=== PATIENT | male | born 1930 | race American Indian/Alaskan Native ===

== ENCOUNTER 2017-05-29 20:42 | Inpatient (IN) | payer MEDICARE, BC, OTHER ==
[2017-05-29 20:42] VITALS: BMI 20.7
[2017-05-29] MEDS ORDERED: Sodium Chloride 0.9% 1,000 ML IV STA (21:02)
[2017-05-29 21:32] LABS: BASO # 0.06 K/mm3 (0.0-2.0); BASO % 1.9 % (0.0-3.0); EOS # 0.2 (0.0-0.7); EOS % 6.3 % (1.5-5.0); GRAN # 1.8 (1.4-6.5); GRAN % 57.2 % (50.0-68.0); HEMOGLOBIN 12.8 g/dL (14.0-18.0); LYMPH # 0.7 (1.2-3.4); LYMPH % 23.5 % (22.0-35.0); MEAN CELL VOLUME 92.8 fl (80.0-105.0); MEAN CORPUSCULAR HEMOGLOBIN 30.8 pg (25.0-35.0); MEAN CORPUSCULAR HGB CONC 33.2 g/dl (31.0-37.0); MEAN PLATELET VOLUME 11.4 fl (7.0-11.0); MONO # 0.4 (0.1-0.6); MONO % 11.1 % (1.0-6.0); RBC 4.15 10^6/uL (3.5-6.1); RED CELL DISTRIBUTION WIDTH 14.8 % (11.5-14.5); WHITE BLOOD COUNT 3.2 10^3/ul (4.5-11.0)
--- NOTE | 2017-05-29 21:32 | ED PDOC ---
Arrival/HPI - General Chief Complaint: Palpitations Time Seen by Provider: 05/29/17 20:43 - History of Present Illness Narrative History of Present Illness (Text): 05/29/17 21:26 An 86 year old male, whose past medical history includes hypertension and prostate cancer, presents to the emergency department for further evaluation s/ p an abnormal EKG obtained at his PMD's office this evening. The patient states that he was recently diagnosed with prostate cancer and was advised to follow up with his PMD to get clearance to begin chemotherapy. The patient states that he went to his scheduled PMD appointment tonight and an EKG was obtained at a rate of 136 BPM. The PMD advised the patient to come into the emergency department for his abnormal EKG results. The patient drove himself to the emergency department and is currently asymptomatic; denying fevers, chills, headache, dizziness, chest pain, shortness of breath, dyspnea on exertion, cough , abdominal pain, nausea, vomiting, diarrhea, back pain, neck pain, urinary/ bowel changes, or any other complaint. PMD: Dr. Doug Martinez Time/Duration: Prior to Arrival Symptom Onset: Sudden Symptom Course: Unchanged Activities at Onset: Rest, Light Context: Other (PMD's office) Past Medical History - Provider Review Nursing Documentation Reviewed: Yes - Infectious Disease Hx of Infectious Diseases: None - Cardiac Hx Cardiac Disorders: Yes Hx Hypertension: Yes - Pulmonary Hx Respiratory Disorders: No - Neurological Hx Neurological Disorder: No - HEENT Hx HEENT Disorder: Yes (glasses) - Renal Hx Renal Disorder: No - Endocrine/Metabolic Hx Endocrine Disorders: No - Hematological/Oncological Hx Blood Disorders: Yes Hx Cancer: Yes (prostate) - Integumentary Hx Dermatological Disorder: No - Musculoskeletal/Rheumatological Hx Musculoskeletal Disorders: Yes Hx Arthritis: Yes - Gastrointestinal Hx Gastrointestinal Disorders: No - Genitourinary/Gynecological Hx Genitourinary Disorders: Yes Hx Prostate Cancer: Yes - Psychiatric Hx Psychophysiologic Disorder: No Hx Substance Use: No - Surgical History Other/Comment: prostate. green light surgery - Anesthesia Hx Anesthesia: Yes Hx Anesthesia Reactions: No Hx Malignant Hyperthermia: No Family/Social History - Physician Review Nursing Documentation Reviewed: Yes Family/Social History: No Known Family HX Smoking Status: Never Smoked Hx Alcohol Use: No Hx Substance Use: No Allergies/Home Meds Allergies/Adverse Reactions: Allergies No Known Allergies Allergy (Verified 06/15/16 18:14) Home Medications: Home Meds Medication Instructions Recorded Confirmed Aspirin [Adult Low Dose Aspirin EC] 81 mg PO DAILY 06/15/16 05/29/17 Hyoscyamine [Levsin] 0.125 mg PO DAILY 06/15/16 05/29/17 Metoprolol Succinate [Toprol XL] 50 mg PO DAILY 06/15/16 05/29/17 Rosuvastatin Calcium [Crestor] 20 mg PO DAILY 05/29/17 05/29/17 Review of Systems - Physician Review All systems were reviewed & negative as marked: Yes - Review of Systems Constitutional: absent: Fevers, Night Sweats Respiratory: absent: SOB, Cough Cardiovascular: absent: Chest Pain, [place] Gastrointestinal: absent: Abdominal Pain, Stool Changes, Diarrhea, Nausea, Vomiting Genitourinary Male: absent: Urinary Output Changes Musculoskeletal: absent: Back Pain, Neck Pain Neurological: absent: Headache, Dizziness Physical Exam Vital Signs Reviewed: Yes Vital Signs Temp Pulse Resp BP Pulse Ox 05/29/17 22:42 97.5 F L 98 H 16 139/93 H 98 05/29/17 20:59 97.4 F L 137 H 24 130/90 99 Temperature: Hypothermic Blood Pressure: Normal Pulse: Tachycardic Respiratory Rate: Normal Appearance: Positive for: Well-Appearing, Non-Toxic, Comfortable Pain Distress: None Mental Status: Positive for: Alert and Oriented X 3 - Systems Exam Head: Present: Atraumatic, Normocephalic Pupils: Present: PERRL Extroacular Muscles: Present: EOMI Conjunctiva: Present: Normal Mouth: Present: Moist Mucous Membranes Neck: Present: Normal Range of Motion Respiratory/Chest: Present: Clear to Auscultation, Good Air Exchange. No: Respiratory Distress, Accessory Muscle Use Cardiovascular: Present: Regular Rate and Rhythm, Normal S1, S2. No: Murmurs Abdomen: Present: Normal Bowel Sounds. No: Tenderness, Distention, Peritoneal Signs Back: Present: Normal Inspection Upper Extremity: Present: Normal Inspection. No: Cyanosis, Edema Lower Extremity: Present: Normal Inspection. No: Edema Neurological: Present: GCS=15, CN II-XII Intact, Speech Normal Skin: Present: Warm, Dry, Normal Color. No: Rashes Psychiatric: Present: Alert, Oriented x 3, Normal Insight, Normal Concentration Medical Decision Making ED Course and Treatment: 05/29/17 21:33 Impression: An 86 year old male presents to the emergency department for further evaluation s/p an abnormal EKG at his PMD's office this evening. Plan: -- EKG -- Chest X-Ray -- Labs -- IV Fluids -- Reassess and disposition Progress Notes: EK05/29/17 21:33 Ordered, reviewed, and independently interpreted the EKG. Rate : 138 BPM Rhythm : Sinus Tachycardia Interpretation : Non- specific ST- T changes. EK05/29/17 22:47 Ordered, reviewed, and independently interpreted the EKG. Rate : 104 BPM Rhythm : Sinus Tachycardia, rate is controlled. Interpretation : Atrial flutter with variable AV block. Septal infarct, age undetermined. - Lab Interpretations Lab Results: 05/29/17 21:00 05/29/17 21:00 Lab Results 05/29/17 21:00: Sodium 141, Potassium 3.7, Chloride 101, Carbon Dioxide 27, Anion Gap 17, BUN 16, Creatinine 1.1, Est GFR ( Amer) > 60, Est GFR (Non- Af Amer) > 60, Random Glucose 85, Calcium 9.5, Total Bilirubin 0.7, AST 47, ALT 67 H, Alkaline Phosphatase 88, Lactate Dehydrogenase 517, Total Creatine Kinase 131, Troponin I 0.02, Total Protein 7.0, Albumin 3.9, Globulin 3.2, Albumin/ Globulin Ratio 1.2 05/29/17 21:00: PT 13.1 H, INR 1.15 H 05/29/17 21:00: WBC 3.2 L, RBC 4.15, Hgb 12.8 L, Hct 38.5 L, MCV 92.8, MCH 30.8 , MCHC 33.2, RDW 14.8 H, Plt Count 142, MPV 11.4 H, Gran % 57.2, Lymph % (Auto) 23.5, [place] % (Auto) 11.1 H, Eos % (Auto) 6.3 H, Baso % (Auto) 1.9, Gran # 1.80, Lymph # (Auto) 0.7 L, [place] # (Auto) 0.4, Eos # (Auto) 0.2, Baso # (Auto) 0.06 I have reviewed the lab results: Yes - RAD Interpretation Radiology Orders: 05/29/17 21:02 CHEST PORTABLE [RAD] Stat - EKG Interpretation Interpreted by ED Physician: Yes Type: 12 lead EKG - Medication Orders Current Medication Orders: Discontinued Medications Sodium Chloride (Sodium Chloride 0.9%) 1,000 mls @ 999 mls/hr IV .Q1H1M STA Stop: 05/29/17 22:02 Last Admin: 05/29/17 21:31 Dose: 999 mls/hr eMAR Start Stop Document 05/29/17 21:31 AB (Rec: 05/29/17 21:31 AB [facility] [id number]) Intravenous Solution Start Date 05/29/17 Start Time 21:31 End Date 05/29/17 End time 22:31 Total Infusion Time 60 - PA / JAVA USER INTERFACE DEVELOPER / Resident Statement MD/DO has reviewed & agrees with the documentation as recorded. - Scribe Statement The provider has reviewed the documentation as recorded by the Scribe Suzanne Freire Provider Scribe Attestation: All medical record entries made by the Scribe were at my direction and personally dictated by me. I have reviewed the chart and agree that the record accurately reflects my personal performance of the history, physical exam, medical decision making, and the department course for this patient. I have also personally directed, reviewed, and agree with the discharge instructions and disposition. Disposition/Present on Arrival - Present on Arrival Any Indicators Present on Arrival: No History of DVT/PE: No History of Uncontrolled Diabetes: No Urinary Catheter: No History of Decub. Ulcer: No History Surgical Site Infection Following: None - Disposition Have Diagnosis and Disposition been Completed?: Yes Diagnosis: Atrial fibrillation and flutter Disposition: HOSPITALIZED Disposition Time: 23:56 (New Onset A Fib/ Variable Ventricular Response) Patient Plan: Admission Condition: GOOD Referrals: Doug Martinez MD [Primary Care Provider] - Follow up with primary Forms: [employer] (E[place]ian)
[2017-05-29 21:42] LABS: ALB/GLOB RATIO 1.2 (1.1-1.8); ALBUMIN 3.9 g/dL (3.0-4.8); ALT/SGPT 67 U/L (7-56); AST/SGOT 47 U/L (17-59); BLOOD UREA NITROGEN 16 mg/dL (7-21); CALCIUM 9.5 mg/dL (8.4-10.5); GFR AFRICAN-AMERICAN > 60; GFR NON-AFRICAN AMERICAN > 60; INR 1.15 (0.93-1.08); PROTHROMBIN TIME 13.1 SECONDS (9.4-12.5)
[2017-05-29 21:52] LABS: TROPONIN I 0.02 ng/mL
[2017-05-30] MEDS ORDERED: Enoxaparin 80 mg Syringe SC STA (00:32)
[2017-05-30] MEDS ORDERED: Potassium Chloride 20 mEq ER Tab PO ONE (09:00)
[2017-05-30] MEDS: Metoprolol Succinate 50 mg XL Tab PO SCH (09:58)
[2017-05-30] MEDS ORDERED: Metoprolol Succinate 50 mg XL Tab PO SCH (10:00)
[2017-05-30 10:03] LABS: HDL CHOLESTEROL 47 mg/dL (29-60)
[2017-05-30 10:14] LABS: LDL CHOLESTEROL 39 mg/dL (0-129)
[2017-05-30] MEDS ORDERED: [UNRECOGNIZED DRUG - OTHER] PO SCH (10:15)
[2017-05-30] MEDS ORDERED: VALSARTAN PO SCH (10:15)
[2017-05-30] MEDS ORDERED: HYDROCHLOROTHIAZIDE PO SCH (10:15)
--- NOTE | 2017-05-30 11:22 | RAD ---
HISTORY: Tachycardia COMPARISON: No prior. FINDINGS: LUNGS: No active pulmonary disease. PLEURA: No significant pleural effusion identified, no pneumothorax apparent. CARDIOVASCULAR: Normal. OSSEOUS STRUCTURES: No significant abnormalities. VISUALIZED UPPER ABDOMEN: Normal. OTHER FINDINGS: None. IMPRESSION: No active disease.
--- NOTE | 2017-05-30 11:45 | CP.PCM.HP ---
<Nataliia Tamez - Last Filed: 05/30/17 11:41> History of Present Illness - History of Present Illness History of Present Illness: Chief complaint: abn ECG 86 yr male w/ history HTN, prostate CA (undergoing radiation treatment), CVA (in 2008), CAD w. stents, ataxia, & arthritis. Pt was in PMD office, Dr. Doug Martinez, when he was instructed to go to hospital for abnormal ECG noted in pre-op clearance for Prostate seed implantation. He reports feeling lethargic for "the past couple days." Pt denies any fever, chills, nausea, vomiting, abdominal pain, shortness of breath, weakness, numbness, tingling, diarrhea, constipation or urinary changes. Present on Admission - Present on Admission Any Indicators Present on Admission: No History of DVT/PE: No History of Uncontrolled Diabetes: No Urinary Catheter: No Decubitus Ulcer Present: No Review of Systems - Constitutional Constitutional: As Per HPI - EENT Eyes: As Per HPI Ears: As Per HPI Nose/Mouth/Throat: As Per HPI - Cardiovascular Cardiovascular: As Per HPI - Respiratory Respiratory: As Per HPI - Gastrointestinal Gastrointestinal: As Per HPI - Genitourinary Genitourinary: As Per HPI - Reproductive: Male Reproductive:Male: As Per HPI - Musculoskeletal Musculoskeletal: As Per HPI - Integumentary Integumentary: As Per HPI - Neurological Neurological: As Per HPI - Psychiatric Psychiatric: As Per HPI - Endocrine Endocrine: As Per HPI - Hematologic/Lymphatic Hematologic: As Per HPI Past Patient History - Infectious Disease Hx of Infectious Diseases: None - Past Medical History & Family History Past Family History: Reviewed and not pertinent - Past Social History Smoking Status: Unknown If Ever Smoked - CARDIAC Hx Cardiac Disorders: Yes Hx Hypercholesterolemia: Yes Hx Hypertension: Yes - PULMONARY Hx Respiratory Disorders: No - NEUROLOGICAL Hx Neurological Disorder: No - HEENT Hx HEENT Problems: Yes (wears glasses) - RENAL Hx Chronic Kidney Disease: No - ENDOCRINE/METABOLIC Hx Endocrine Disorders: No - HEMATOLOGICAL/ONCOLOGICAL Hx Blood Disorders: Yes Hx Cancer: Yes (prostate) - INTEGUMENTARY Hx Dermatological Problems: No - MUSCULOSKELETAL/RHEUMATOLOGICAL Hx Musculoskeletal Disorders: Yes Hx Arthritis: Yes Hx Falls: No - GASTROINTESTINAL Hx Gastrointestinal Disorders: No - GENITOURINARY/GYNECOLOGICAL Hx Genitourinary Disorders: Yes Hx Prostate Problems: Yes (HX of prostate CA) - PSYCHIATRIC Hx Psychophysiologic Disorder: No - SURGICAL HISTORY Hx Surgeries: Yes Other/Comment: prostate. green light surgery - ANESTHESIA Hx Anesthesia: Yes Hx Anesthesia Reactions: No Hx Malignant Hyperthermia: No Meds Allergies/Adverse Reactions: Allergies Allergy/AdvReac Type Severity Reaction Status Date / Time No Known Allergies Allergy Verified 06/15/16 18:14 Physical Exam - Constitutional Appears: Well - Head Exam Head Exam: ATRAUMATIC, NORMAL INSPECTION, NORMOCEPHALIC - Eye Exam Eye Exam: EOMI, Normal appearance, PERRL Pupil Exam: NORMAL ACCOMODATION, PERRL - ENT Exam ENT Exam: Mucous Membranes Moist, Normal Exam - Neck Exam Neck exam: Positive for: Normal Inspection - Respiratory Exam Respiratory Exam: Clear to Auscultation Bilateral, NORMAL BREATHING PATTERN - Cardiovascular Exam Cardiovascular Exam: Tachycardia, +S1, +S2 - GI/Abdominal Exam GI & Abdominal Exam: Normal Bowel Sounds, Soft. absent: Tenderness - Extremities Exam Extremities exam: Positive for: normal inspection Additional comments: cane at bedside. - Back Exam Back exam: NORMAL INSPECTION - Neurological Exam Neurological exam: Alert, Oriented x3, Reflexes Normal - Psychiatric Exam Psychiatric exam: Normal Affect, Normal Mood - Skin Skin Exam: Dry, Intact, Normal Color, Warm Results - Vital Signs Recent Vital Signs: Last Vital Signs Temp 99 F 05/30/17 06:00 Pulse 137 H 05/30/17 09:58 Resp 20 05/30/17 06:00 BP 151/99 H 05/30/17 09:58 Pulse Ox 99 05/30/17 06:00 - Labs Result Diagrams: 05/29/17 21:00 05/29/17 21:00 Labs: Laboratory Results - last 24 hr 05/30/17 05/30/17 09:30 09:30 Triglycerides 41 Cholesterol 98 L LDL Cholesterol Direct 39 HDL Cholesterol 47 TSH 3rd Generation 1.64 Assessment & Plan (1) Anemia Status: Acute (2) Neutropenia Status: Acute (3) Prostate CA Status: Acute (4) Abnormal LFTs Status: Acute (5) Atrial fibrillation and flutter Status: Acute - Assessment and Plan (Free Text) Plan: Admit to Telemetry. ECHO ordered. Electrolytes corrected. Labs ordered. GI/VTE prophylaxis. Consult: Cardio - Dr. Benítez Reviewed: CXR = WNL ECG = ABNORMAL, aflutter w. variable AV block septal infarct, age undetermined - Date & Time Date: 05/30/17 Time: 09:45 <Rocio De Santiago - Last Filed: 05/30/17 23:16> Results - Vital Signs Recent Vital Signs: Last Vital Signs Temp 97.4 F L 05/30/17 21:49 Pulse 55 L 05/30/17 21:49 Resp 18 05/30/17 21:49 BP 112/79 05/30/17 21:49 Pulse Ox 96 05/30/17 21:49 - Labs Result Diagrams: 05/29/17 21:00 05/29/17 21:00 Labs: Laboratory Results - last 24 hr 05/30/17 05/30/17 05/30/17 09:30 09:30 09:30 Hemoglobin A1c 5.7 Triglycerides 41 Cholesterol 98 L LDL Cholesterol Direct 39 HDL Cholesterol 47 TSH 3rd Generation 1.64 Assessment & Plan - Assessment and Plan (Free Text) Plan: 86 yr male w/ history HTN, prostate CA (undergoing radiation treatment), CVA (in 2008), CAD w. stents, ataxia, & arthritis. Pt was in PMD office, Dr. Doug Martinez, when he was instructed to go to hospital for abnormal ECG noted in pre-op clearance for Prostate seed implantation. He reports feeling lethargic for "the past couple days." Pt denies any fever, chills, nausea, vomiting, abdominal pain, shortness of breath, weakness, numbness, tingling, diarrhea, constipation or urinary changes.pt is seen and examined at bed side , looking comfortable . agreed all above , will f/u
[2017-05-30] MEDS: Hyoscyamine 0.125 mg SL Tab PO SCH ×2 (12:51→13:01)
--- NOTE | 2017-05-30 16:13 | CARD ---
APPROVED REPORT EKG Measurement Heart [id number] <Conclusion> Atrial flutter with variable AV block Septal infarct, age undetermined Abnormal ECG
--- NOTE | 2017-05-30 16:15 | CARD ---
APPROVED REPORT EKG Measurement Heart [id number] 142P [id number] <Conclusion> Sinus tachycardia Septal infarct, age undetermined ST & T wave abnormality, consider anterior ischemia Abnormal ECG
--- NOTE | 2017-05-30 18:33 | CARD ---
APPROVED REPORT EXAM: Two-dimensional and M-mode echocardiogram with Doppler and color Doppler. INDICATION Atrial Fibrillation 2D DIMENSIONS Left Atrium (2D)5.4 (1.6-4.0cm)IVSd1.3 (0.7-1.1cm) LVDd4.4 (3.9-5.9cm)PWd1.2 (0.7-1.1cm) LVDs3.9 (2.5-4.0cm)FS (%) 11.6 % LVEF (%)25.3 (>50%) M-Mode DIMENSIONS Aortic Root2.70 (2.2-3.7cm)Aortic Cusp Exc.1.40 (1.5-2.0cm) Aortic Valve AoV Peak Scgackoq591.0cm/Renato Peak GR.7mmHg Mitral Valve E/A ratio0.0 TDI E/Lateral E'0.0E/Medial E'0.0 Tricuspid Valve TR Peak [id number] [id number] Peak Gr.36mmHg [id number] LEFT VENTRICLE The Left Ventricle is borderline dilated. There is mild to moderate concentric left ventricular hypertrophy. The systolic function is severely impaired.EF-20-25% There is global moderate to severe hypokinesis of the left ventricle. A fib No left ventricle thrombus noted on this study. There is no ventricular septal defect visualized. There is no left ventricular aneurysm. There is no mass noted in the left ventricle. RIGHT VENTRICLE The right ventricle is borderline dilated. There is normal right ventricular wall thickness. Systolic function is mildly reduced. ATRIA The left atrium is severely dilated. The right atrium is mildly dilated. The interatrial septum is intact with no evidence for an atrial septal defect. AORTIC VALVE The aortic valve is thickened but opens well. The aortic valve is moderately sclerotic. There is trace aortic regurgitation. There is no aortic valvular stenosis. There is no aortic valvular vegetation. MITRAL VALVE The mitral valve is thickened but opens well. Mitral regurgitation is moderate. There is no mitral valve stenosis. There is no evidence of mitral valve prolapse. TRICUSPID VALVE The tricuspid valve leaflets are thickened , but open well. There is moderate tricuspid regurgitation.RVSP-46 mmof hg. There is no tricuspid valve stenosis. There is no tricuspid valve prolapse or vegetation. PULMONIC VALVE The pulmonic valve is mildly thickened. There is trace pulmonic valvular regurgitation. There is no pulmonic valvular stenosis. GREAT VESSELS The aortic root is normal in size. The ascending aorta is normal in size. The pulmonary artery is normal. The IVC is dilated. PERICARDIAL EFFUSION There is no pleural effusion. There is no pericardial effusion. <Conclusion> Four chamber dilatation ,EF-20-25% There is trace aortic regurgitation. Mitral regurgitation is moderate. There is moderate tricuspid regurgitation.RVSP-46 mmof hg. The IVC is dilated. There is no pericardial effusion. Pt was in A fib at the time of study.
--- NOTE | 2017-05-30 19:25 | CON ---
DATE: REASON FOR CONSULTATION: Followup AFib new onset, preop for prostate seeding, history of coronary artery disease. BRIEF CLINICAL HISTORY: This is an 86-year-old male with past medical history significant for hypertension, prostate CA, history of coronary artery disease, history of a stent in circumflex OM1 by Dr. Mami Corona on 11/10/2006 at [facility], who was having prostate seed implantation for prostate CA, now getting radiation. Preop, patient underwent EKG and was found to be in AFib, so sent to the ER. Patient denies any chest pain or shortness of breath. Denied any palpitation. Patient walks with a cane. PAST MEDICAL HISTORY: Significant for hypertension, hyperlipidemia; prostate CA, on radiation, 2 more radiation left, and patient needs radioactive seed implantation with prostate surgery. Preop evaluation EKG showed AFib, so the patient was sent to the ER. PREVIOUS CARDIAC WORKUP: Patient follows with Dr. Mami Corona, history of a stent on 11/10/2006 of the obtuse margin one branch of the circumflex at [facility], being followed by Dr. Bolaños, last time Dr. Bolaños saw is 7 months ago, and had stress test one year ago. CURRENT MEDICATIONS: Patient is taking Crestor 20 mg daily, Levsin 0.125 mg , aspirin 81 mg daily, metoprolol succinate 50 mg daily. REVIEW OF SYSTEMS: As per HPI. PHYSICAL EXAMINATION: As follows: VITAL SIGNS: Temperature afebrile, heart rate 116, blood pressure 119/55. HEENT: PERRLA. Extraocular muscles intact. NECK: Supple. No carotid bruits or thyromegaly. CHEST: Clear to auscultation. HEART: S1 and S2, irregular. ABDOMEN: Soft. EXTREMITIES: Clubbing and cyanosis negative. LABORATORY DATA: EKG showed AFib with rapid rate, though computer read it as sinus tachycardia with aflutter with 2:1 conduction. Blood workup as follows, WBC 3.8, hemoglobin 12.8, hematocrit 38.5, platelet count 142. Chemistry showed sodium 141, potassium 3.7, chloride 101, carbon dioxide 27, anion gap of 17, BUN 16, creatinine 1.1. IMPRESSION: New onset of atrial fibrillation with flutter; prostate cancer, for seed implantation next week, history of prostate cancer, on radiation; history of coronary artery disease, status post percutaneous transluminal coronary angioplasty of the circumflex on 11/10/2006, history of cerebrovascular accident with left-sided weakness in lower extremity, walks with a cane. RECOMMENDATIONS: We will start low-dose of Eliquis. Start Cardizem. We will get echo to assess LV function, lipid profile, TSH, and upon discharge, patient to be followed up with Dr. Mami Corona for possible SADE cardioversion and then hold the procedure. I explained the patient to hold the procedure of seed implantation till the patient become normal sinus, or leave him for at least a week or 2 weeks of blood thinner, then reschedule for prostate seed implantation surgery. Thank you Dr. De Santiago for providing the opportunity in taking care of the patient Balbir Hyde. Lisa Benítez MD cc: Rocio De Santiago MD
[2017-05-31 08:31] LABS: BASO # 0.03 K/mm3 (0.0-2.0); BASO % 0.9 % (0.0-3.0); EOS # 0.2 (0.0-0.7); EOS % 5.8 % (1.5-5.0); GRAN # 1.84 (1.4-6.5); GRAN % 52.9 % (50.0-68.0); HEMOGLOBIN 13.2 g/dL (14.0-18.0); MEAN CELL VOLUME 92.4 fl (80.0-105.0); MEAN CORPUSCULAR HEMOGLOBIN 30.6 pg (25.0-35.0); MEAN CORPUSCULAR HGB CONC 33.1 g/dl (31.0-37.0); MONO # 0.4 (0.1-0.6); MONO % 12.4 % (1.0-6.0); RBC 4.32 10^6/uL (3.5-6.1); RED CELL DISTRIBUTION WIDTH 14.7 % (11.5-14.5); WHITE BLOOD COUNT 3.5 10^3/ul (4.5-11.0)
[2017-05-31 09:04] LABS: ALB/GLOB RATIO 1.2 (1.1-1.8); ALT/SGPT 77 U/L (7-56); AST/SGOT 48 U/L (17-59); BLOOD UREA NITROGEN 19 mg/dL (7-21); CALCIUM 9.6 mg/dL (8.4-10.5); GFR AFRICAN-AMERICAN > 60; GFR NON-AFRICAN AMERICAN > 60; MAGNESIUM 2.1 mg/dL (1.7-2.2)
[2017-05-31] MEDS: Metoprolol Succinate 50 mg XL Tab PO SCH (09:38)
[2017-05-31] MEDS: Lubricant Eye Drops UD OU SCH (09:38)
[2017-05-31] MEDS: Hyoscyamine 0.125 mg SL Tab PO SCH (09:38)
--- NOTE | 2017-05-31 15:42 | PN ---
DATE: REASON FOR CONSULTATION: Followup new onset of atrial fibrillation, preop for prostate seeding, shows AFib on EKG, history of coronary artery disease. SUBJECTIVE: The patient denies any chest pain, but was anxious to go home last night. 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 Mami Corona, who said, you can go home, though the patient was in AFib with rapid ventricular rate. PHYSICAL EXAMINATION: VITAL SIGNS: Temperature afebrile, heart rate 137, blood pressure 145/90. HEENT: PERRLA. Extraocular muscles are intact. NECK: Supple. No carotid bruits or thyromegaly. CHEST: Clear to auscultation. HEART: S1 and S2, regular. ABDOMEN: Soft. EXTREMITIES: Clubbing and cyanosis negative. LABORATORY DATA: Blood workup as follows; WBC 3.5, hemoglobin 13.2, hematocrit 39.2, platelet count 137. Chemistry shows sodium 143, potassium 3.4, chloride 107, carbon dioxide 24, anion gap of 16, BUN 19, creatinine 1.1. IMPRESSION: New onset of atrial fibrillation, history of prostate cancer, for prostate seeding next month, history of coronary artery disease, status post percutaneous transluminal coronary angioplasty with the stent in the circumflex on 11/10/2006, obtuse marginal branch of circumflex at [facility] by Dr. Mami Corona, a stress test [address] Mami Corona, hypertension, hyperlipidemia, history of cerebrovascular accident. RECOMMENDATION: Started low dose of Eliquis. Continue Cardizem. Continue beta-jessy. Continue verapamil 2.5 p.r.n. Discussed at length with the patient. The patient wanted to be discharged and very upset last night, multiple times talked to the patient. This morning again talked to the patient in length, about half an hour spent, sit with the nurse and explained to the patient when heart rate is controlled, patient can be discharged, but patient wanted to go home now, offered him to sign out AMA, otherwise cannot discharge unless the heart rate is controlled. Ultimately, the patient appeared that he understood. We will follow with you. We will change the metoprolol tartrate to 50 b.i.d. The patient had echocardiography done yesterday that showed ejection fraction 25%, trace aortic regurgitation, moderate mitral regurgitation, moderate tricuspid regurgitation, RV systolic pressure 46, atrium severely dilated, not a candidate for SADE cardioversion. We will continue rate control, not the rhythm because the patient will not stay in sinus because of large atrium. Thank you, Dr. De Santiago for providing us the opportunity in taking care of the patient, Balbir Hyde. Lisa Benítez MD
[2017-06-01] MEDS: Hyoscyamine 0.125 mg SL Tab PO SCH (10:24)
[2017-06-01] MEDS: Lubricant Eye Drops UD OU SCH (10:25)
[2017-06-01] MEDS ORDERED: Digoxin 500 mcg/2ml (0.5 mg/2ml) Inj IVP ONE (12:27)
[2017-06-01 16:47] VITALS: PULSE 84
--- NOTE | 2017-06-01 22:58 | PN ---
DATE: SUBJECTIVE: The patient is an 86-year-old male. The patient is seen and examined at the bedside, looking comfortable, anxious to go home, but when the patient is walking, heart rate is going up to 130s or 140s, but when sitting, heart rate is going to the 70s. Heart rate is not stable, seen by the top edge beveler. No chest pain. No nausea, vomiting, or diarrhea. No hematuria or hematochezia. No swelling of the leg. No headache. No dizziness. PHYSICAL EXAMINATION: VITAL SIGNS: Temperature 98, pulse 68, blood pressure 110/72, and respiratory rate 20. HEENT: Head: Normocephalic, atraumatic. Eyes: PERRLA,. Extraocular movements are intact. Conjunctivae are clear. Nose patent. Mucous membranes are moist. NECK: Supple. No carotid bruits, JVD, or thyromegaly. CHEST: Bilaterally symmetrical. HEART: S1 and S2 positive. LUNGS: Clear to auscultation. ABDOMEN: Soft. Bowel sounds are present. No organomegaly. EXTREMITIES: No edema. No cyanosis. NEUROLOGIC: The patient is awake and alert. Moving all four extremities. No focal deficits. LABORATORY DATA: White blood cells 3.5, hemoglobin 13.2, hematocrit 39.9, and platelets 137. Sodium 143, potassium 4.2, BUN 19, creatinine 1.2, glucose 120, AST 77. MEDICATIONS: Cardizem, Cozaar, Ecotrin, Eliquis, hydrouracil, Levsin, Lipitor, Lopressor, artificial tears, verapamil. ASSESSMENT AND PLAN: Mr. Balbir Hyde is an 86-year-old male with leukopenia, anemia, hyperglycemia, and abnormal liver function test, seen by Dr. Benítez, top edge beveler, new-onset atrial fibrillation, history of prostate cancer - he is getting ready for prostate seeding, history of coronary artery disease, angioplasty, hypercholesterolemia, hypertension, cerebrovascular accident. [employer] is on the case. Continue present treatment. Started low dose of Eliquis. Continue Cardizem, beta-blockers, and verapamil. Gastric and deep venous thrombosis prophylaxes. Repeat labs. We will follow up. Rocio De Santiago MD
--- NOTE | 2017-06-02 08:45 | PN ---
DATE: 06/01/2017 REASON FOR CONSULTATION AND FOLLOWUP: New onset of atrial fibrillation, history of coronary artery disease, history of stent in the past. SUBJECTIVE: Patient denies any chest pain, shortness of breath, any palpitation. OBJECTIVE: GENERAL: Not in apparent distress. VITAL SIGNS: Temperature afebrile, heart rate 97, blood pressure 118/80. HEENT: PERRLA intact. NECK: Supple. No carotid bruits or thyromegaly. CHEST: Clear to auscultation. HEART: S1, S2 regular. ABDOMEN: Soft. EXTREMITIES: Clubbing and cyanosis negative. LABORATORY DATA: Blood workup as follows; WBC 3.5, hemoglobin 13.8, hematocrit 39.9, platelet count 137. Chemistry shows sodium 143, potassium 4.2, chloride 107, carbon dioxide 24, anion gap of 16, BUN 19, creatinine 1.0. IMPRESSION: New onset of atrial fibrillation detected on preop evaluation for prostate seed implantation, history of prostate cancer, for seed implantation, history of coronary artery disease, status post percutaneous transluminal coronary angioplasty by Dr. Mami Corona on 11/10/2006, obtuse marginal branch of the circumflex at [facility], history of stress test by Dr. Mami Corona 7 months ago. RECOMMENDATION: Continue Eliquis, continue Cardizem, continue beta-jessy, verapamil 2.5 p.r.n. Patient is anxious to go home, mentioned to the patient to go home as now rate is fast, he can pass out. Yesterday, patient understood about this warning, patient again wanted to go home, tried to explain the patient. Also patient not a candidate for SADE cardioversion because of significant severely dilated . At this point, we will control the rate not the rhythm. We will give one dose of digoxin to lower the heart rate, continue Cardizem CD from tomorrow. We would like to continue Cardizem 30 mg daily and start from tomorrow 120 mg, continue Eliquis readjusted dose, continue metoprolol tartarate 50 b.i.d. We will give Cardizem 30 mg q.i.d. long dose tonight and then start from tomorrow, Cardizem CD. Patient call Dr. Mami Corona, states that he had appointment on . Also told the patient to ambulate and monitor the heart rate. We will give one dose of digoxin to slow the heart rate. Lsia Benítez MD
--- NOTE | 2017-06-02 09:44 | PN ---
DATE: 05/31/2017 SUBJECTIVE: The patient is an 86-year-old male. The patient is seen and examined at the bedside. Looking comfortable. Sitting on the side of the bed, wants to go home. Feeling better. Has a new onset atrial fibrillation. No nausea, vomiting, or diarrhea. No hematuria or hematochezia. No swelling of the leg. No headache or dizziness. PHYSICAL EXAMINATION: VITAL SIGNS: Temperature 98.6, heart rate 137, blood pressure 145/90. HEENT: Head is normocephalic and atraumatic. Eyes, PERRLA. Extraocular muscles intact. Conjunctivae clear. Nose patent. Mucous membranes moist. NECK: Supple. No carotid bruits. No JVD or thyromegaly. CHEST: Bilaterally symmetrical. HEART: S1 and S2 positive. LUNGS: Clear to auscultation. ABDOMEN: Soft. Bowel sounds present. No organomegaly. EXTREMITIES: No edema. No cyanosis. NEUROLOGIC: The patient is awake and alert. Moving all four extremities. No focal deficits. MEDICATIONS: Cardizem, Cozaar, Ecotrin, Eliquis, hydrochlorothiazide, Lipitor, Lopressor, artificial tears, verapamil. LABORATORY DATA: White blood cell 3.5, hemoglobin 13.2, hematocrit 39.9, and platelets 137. Sodium 143, potassium 4.2, BUN 19, creatinine 1.1, glucose 120. ALT 77. ASSESSMENT AND PLAN: 86-year-old male with hyperglycemia, abnormal liver function tests, leukopenia, anemia, seen by the record tester, Dr. Benítez, has new-onset atrial fibrillation, history of prostate cancer. Actually he was doing physical examination for prostate seeding next month, then they found the EKG is abnormal, sent the patient to the hospital emergency room. Has a history of coronary artery disease, status post percutaneous transluminal coronary angioplasty with the stent in the circumflex on , The patient's record tester is Dr. Mami Corona. Stress test [address] Mami Corona; history of hypertension; hypercholesterolemia; cerebrovascular accident. As per Dr. Benítez, the patient was started on low dose of Eliquis. Continue Cardizem. Continue beta-blockers. Continue verapamil. Length of time discussion done with the patient's nurse and the patient. The patient is a little bit restless. Had multiple time discussion done with the patient. The patient was informed when rate is controlled, we will discharge him. Otherwise, he can go against medical advice. The patient understands his situation. Dr. Benítez changed metoprolol to 50 b.i.d. Echocardiography was done yesterday. Continue rate control medications. the patient will not stay in the because of large atrium as per Cardiology. Gastrointestinal and deep vein thrombosis prophylaxis. Repeat labs. We will follow. Rocio De Santiago MD [id number]
[2017-06-02] MEDS: diltiaZEM 120 mg/24 Hours CD Cap PO SCH (11:30)
[2017-06-02] MEDS: Hyoscyamine 0.125 mg SL Tab PO SCH ×2 (11:32→17:15)
[2017-06-02] MEDS: Lubricant Eye Drops UD OU SCH (11:33)
[2017-06-02] MEDS ORDERED: Midazolam 2 MG/2 ML VIAL ONE (12:51)
[2017-06-02] MEDS ORDERED: Metoprolol 1 mg/ml Inj IVP ONE ×2 (12:52→13:15)
[2017-06-02] MEDS ORDERED: Naloxone 0.4 mg/ml Inj (Adult) ONE (12:52)
[2017-06-02] MEDS ORDERED: Flumazenil 0.1 mg/ml Inj (5ml) IVP ONE ×3 (12:52→13:25)
[2017-06-02] MEDS ORDERED: Midazolam 2 MG/2 ML VIAL IV ONE ×3 (12:58→13:05)
[2017-06-02] MEDS ORDERED: Naloxone 0.4 mg/ml Inj (Adult) IVP ONE (13:21)
[2017-06-02] MEDS ORDERED: Sodium Chloride 0.9% 1,000 ML IV SCH (13:30)
--- NOTE | 2017-06-02 15:08 | CARD ---
APPROVED REPORT EXAM: Transesophageal echocardiogram with color flow Doppler and Synchronized Cardioversion. INDICATION Atrial Fibrillation Mitral Valve E/A ratio0.0 TDI E/Lateral E'0.0E/Medial E'0.0 Tricuspid Valve TR Peak [id number] [id number] Peak Gr.26mmHg [id number] Reason For Test : SADE and Cardioversion PROCEDURE After obtaining informed consent, patient underwent transesophageal echo in the Echo Lab. Type of Sedation : Conscious Sedation Sedation was administered by DR. Benítez. Sedation was achieved with Versed and , Fentanyl 3mg and 199mcg intravenously. Transesophageal probe was inserted and advanced into esophagus without difficulty. Echo enhancement indication: R/O Septal defect. Echo enhancement agent administered: Agitated Saline The SADE was performed without complications. Synchronized Cardioversion attempted: Successful Synchronized Cardioversion acheived with 200 Joules after first attempt(s). Rhythm following Synchronized Cardioversion: Throughout the procedure, the blood pressure, pulse oximetry, cardiac rhythm, and rate were monitored. The patient tolerated the procedure without adverse effects. Recovery from conscious sedation was uneventful and vital signs were stable. LEFT VENTRICLE The Left Ventricle is borderline dilated. There is mild to moderate concentric left ventricular hypertrophy. Left ventricle systolic function is severely impaired.EF-2025% There is moderate to severe global hypokinesis of the left ventricle. Afib No left ventricle thrombus noted on this study. There is no ventricular septal defect visualized. There is no left ventricular aneurysm. There is no mass noted in the left ventricle. RIGHT VENTRICLE The right ventricle is mildly dilated. There is normal right ventricular wall thickness. Systolic function is mildly to moderately reduced. ATRIA The left atrium is severely dilated. The right atrium is moderately dilated. The interatrial septum is intact with no evidence for an atrial septal defect, by color flow and Bubble study. AORTIC VALVE The aortic valve is mildly to moderately thickened. There is trace aortic regurgitation. There is no aortic valvular stenosis. There is no aortic valvular vegetation. MITRAL VALVE The mitral valve leaflets are thickened. There is no evidence of mitral valve prolapse. There is no mitral valve stenosis. Mitral regurgitation is moderate. TRICUSPID VALVE The tricuspid valve leaflets display thickening. There is moderate tricuspid regurgitation. There is no tricuspid valve prolapse or vegetation. There is no tricuspid valve stenosis. PULMONIC VALVE The pulmonic valve is mildly thickened. There is trace to mild pulmonic valvular regurgitation. There is no pulmonic valvular stenosis. GREAT VESSELS The aortic root is normal in size. The ascending aorta is normal in size. The pulmonary artery is normal. The IVC is normal in size and collapses >50% with inspiration. PERICARDIAL EFFUSION There is a trace pericardial effusion. There is no pleural effusion. <Conclusion> Four chamber dilatation. EF-20-25% ( A fib) Trace AR. Trace to mild PI. Moderate Mr Moderate TR. RVSP-36 mmofhg. Trace Pericardial effusion Velocityin AMOR>0.4 m/s Mild plaqye in Descending aorta. 200 joules Synchronized cardioversion done,pt. converted to NSR.
--- NOTE | 2017-06-02 16:13 | CP.PCM.PN ---
<Nataliia Tamez - Last Filed: 06/02/17 16:10> Subjective - Date & Time of Evaluation Date of Evaluation: 06/02/17 Time of Evaluation: 10:40 - Subjective Subjective: Chief complaint: Abn ECG 86 yr male w/ history HTN, prostate CA (undergoing radiation treatment), CVA (in 2008), CAD w. stents, ataxia, & arthritis. Pt was in PMD office, Dr. Doug Martinez, when he was instructed to go to hospital for abnormal ECG noted in pre-op clearance for Prostate seed implantation. He is NPO for possible SADE today. Pt denies any fever, chills, nausea, vomiting, abdominal pain, shortness of breath, weakness, numbness, tingling, diarrhea, constipation or urinary changes. Objective - Vital Signs/Intake and Output Vital Signs (last 24 hours): Temp Pulse Resp BP Pulse Ox 98.1 F 78 16 121/82 100 06/02/17 14:22 06/02/17 14:22 06/02/17 14:22 06/02/17 14:22 06/02/17 14:22 Intake and Output: 06/02/17 06/02/17 06:59 18:59 Intake Total 360 200 Balance 360 200 - Medications Medications: Current Medications Amiodarone HCl (Cordarone) 200 mg PO DAILY [facility] Apixaban (Eliquis) 2.5 mg PO BID [facility] PRN Reason: Protocol Last Admin: 06/02/17 11:31 Dose: Not Given Artificial Tears (Refresh Opth Soln) 0.3 ml OU DAILY [facility] Last Admin: 06/02/17 11:33 Dose: 0.3 ml Aspirin (Ecotrin) 81 mg PO DAILY [facility] Last Admin: 06/02/17 11:31 Dose: Not Given Atorvastatin Calcium (Lipitor) 80 mg PO DIN [facility] Last Admin: 06/01/17 16:51 Dose: 80 mg Diltiazem HCl (Cardizem Cd) 120 mg PO DAILY [facility] Last Admin: 06/02/17 11:30 Dose: Not Given Hydrochlorothiazide (Hydrodiuril) 25 mg PO DAILY [facility] Last Admin: 06/02/17 11:32 Dose: Not Given Hyoscyamine (Levsin) 0.125 mg PO DAILY [facility] Last Admin: 06/02/17 11:32 Dose: Not Given Losartan Potassium (Cozaar) 100 mg PO DAILY [facility] Last Admin: 06/02/17 11:30 Dose: Not Given Metoprolol Tartrate (Lopressor) 25 mg PO BID [facility] Verapamil HCl (Verapamil Inj) 2.5 mg IVP Q4H PRN PRN Reason: for heart rate >130 Last Admin: 06/02/17 11:29 Dose: 2.5 mg - Labs Labs: 05/31/17 07:30 05/31/17 07:30 PT 13.1 SECONDS (9.4-12.5) H 05/29/17 21:00 INR 1.15 (0.93-1.08) H 05/29/17 21:00 - Constitutional Appears: Well - Head Exam Head Exam: ATRAUMATIC, NORMAL INSPECTION, NORMOCEPHALIC - Eye Exam Additional comments: corrective glasses - ENT Exam ENT Exam: Mucous Membranes Moist, Normal Exam - Neck Exam Neck Exam: Full ROM, Normal Inspection. absent: Lymphadenopathy - Respiratory Exam Respiratory Exam: Clear to Ausculation Bilateral, NORMAL BREATHING PATTERN - Cardiovascular Exam Cardiovascular Exam: Tachycardia, +S1, +S2 - GI/Abdominal Exam GI & Abdominal Exam: Soft, Normal Bowel Sounds. absent: Tenderness - Extremities Exam Extremities Exam: Full ROM, Normal Capillary Refill, Normal Inspection. absent : Joint Swelling, Pedal Edema Additional comments: cane at bedside - Back Exam Back Exam: NORMAL INSPECTION - Neurological Exam Neurological Exam: Alert, Awake, Oriented x3 - Psychiatric Exam Psychiatric exam: Anxious - Skin Skin Exam: Dry, Intact, Normal Color, Warm Assessment and Plan (1) Anemia Status: Acute (2) Neutropenia Status: Acute (3) Prostate CA Status: Acute (4) Abnormal LFTs Status: Acute (5) Atrial fibrillation and flutter Status: Acute - Assessment and Plan (Free Text) Plan: Eliquis onboard. Digoxin on board. SADE pending. Pt is NPO. Labs ordered. GI/VTE prophylaxis. PT onboard. Consult: Cardio - Dr. Benítez Reviewed: CXR = WNL ECG = ABNORMAL, aflutter w. variable AV block septal infarct, age undetermined ECHO = EF 20-25%, mod mitral regurg, mod tricuspid regurg, IVC dilation, afib <Rocio De Santiago - Last Filed: 06/02/17 18:49> Objective - Vital Signs/Intake and Output Vital Signs (last 24 hours): Temp Pulse Resp BP Pulse Ox 98.1 F 85 16 125/86 100 06/02/17 14:22 06/02/17 17:14 06/02/17 14:22 06/02/17 17:14 06/02/17 14:22 Intake and Output: 06/02/17 06/02/17 06:59 18:59 Intake Total 360 380 Balance 360 380 - Medications Medications: Current Medications Amiodarone HCl (Cordarone) 200 mg PO DAILY [facility] Apixaban (Eliquis) 2.5 mg PO BID [facility] PRN Reason: Protocol Last Admin: 06/02/17 17:15 Dose: 2.5 mg Artificial Tears (Refresh Opth Soln) 0.3 ml OU DAILY [facility] Last Admin: 06/02/17 11:33 Dose: 0.3 ml Aspirin (Ecotrin) 81 mg PO DAILY [facility] Last Admin: 06/02/17 17:17 Dose: 81 mg Atorvastatin Calcium (Lipitor) 80 mg PO DIN [facility] Last Admin: 06/02/17 17:12 Dose: 80 mg Diltiazem HCl (Cardizem Cd) 120 mg PO DAILY [facility] Last Admin: 06/02/17 11:30 Dose: Not Given Hydrochlorothiazide (Hydrodiuril) 25 mg PO DAILY [facility] Last Admin: 06/02/17 17:17 Dose: 25 mg Hyoscyamine (Levsin) 0.125 mg PO DAILY [facility] Last Admin: 06/02/17 17:15 Dose: 0.125 mg Losartan Potassium (Cozaar) 100 mg PO DAILY [facility] Last Admin: 06/02/17 17:15 Dose: 100 mg Metoprolol Tartrate (Lopressor) 25 mg PO BID [facility] Last Admin: 06/02/17 17:14 Dose: 25 mg Verapamil HCl (Verapamil Inj) 2.5 mg IVP Q4H PRN PRN Reason: for heart rate >130 Last Admin: 06/02/17 11:29 Dose: 2.5 mg - Labs Labs: 05/31/17 07:30 05/31/17 07:30 PT 13.1 SECONDS (9.4-12.5) H 05/29/17 21:00 INR 1.15 (0.93-1.08) H 05/29/17 21:00 Assessment and Plan - Assessment and Plan (Free Text) Plan: 86 yr male w/ history HTN, prostate CA (undergoing radiation treatment), CVA (in 2008), CAD w. stents, ataxia, & arthritis. Pt was in PMD office, Dr. Doug Martinez, when he was instructed to go to hospital for abnormal ECG noted in pre-op clearance for Prostate seed implantation. He is NPO for possible SADE today. Pt denies any fever, chills, nausea, vomiting, abdominal pain, shortness of breath, weakness, numbness, tingling, diarrhea, constipation or urinary changes.pt is seen and examined at bed side . chart . labs and meds noted , agreed all above , will f/u
--- NOTE | 2017-06-02 17:52 | CARD ---
APPROVED REPORT EKG Measurement Heart [id number] <Conclusion> Sinus rhythm with premature atrial complexes Otherwise normal ECG
--- NOTE | 2017-06-02 20:01 | PN ---
DATE: CONSULTING PHYSICIAN: Lisa Benítez MD REASON FOR CONSULTATION AND FOLLOWUP: New onset of atrial fibrillation, coronary artery disease, status post SADE cardioversion this morning. SUBJECTIVE: Patient denies any chest pain, shortness of breath, or any palpitation. OBJECTIVE: GENERAL: Not in apparent distress. VITAL SIGNS: As follows, temperature afebrile, heart rate , blood pressure 101/78. HEENT: PERRLA intact. NECK: Supple. No carotid bruits or thyromegaly. CHEST: Clear to auscultation. HEART: S1, S2, regular. ABDOMEN: Soft. EXTREMITIES: Clubbing and cyanosis negative. LABORATORY DATA: WBC 3.5, hemoglobin 13.8, hematocrit 39.9, platelet count 137. Chemistry shows sodium 142, potassium 4.2, chloride 107, carbon dioxide 24, anion gap of 15, BUN 19, creatinine 1.1. IMPRESSION: New onset of atrial fibrillation, cardiomyopathy, history of coronary artery disease, status post percutaneous transluminal coronary angioplasty in the past. He is status post SADE cardioversion converted to normal sinus, attempted, patient converted successfully to normal sinus. RECOMMENDATION: Continue Eliquis. Continue Cardizem. Continue beta jessy. Initial plan was to control the rate, not the rhythm because the left atrium is significantly enlarged by regular echo and the chances of him staying into normal sinus is relatively low, but patient needs surgery for prostate for seed implantation and needs to get out of the anticoagulation. So in the interest of the patient, discussed with the patient last night in length and then proceed for SADE cardioversion. Now, the patient will be on Cardizem and the beta-jessy of 200 mg of amiodarone to maintain the sinus rhythm and possibly discharge home tomorrow, will be following Dr. Mami Corona. After two weeks, anticoagulation can be discontinued, patient can have the prostate seeding. If the rate in sinus, then may not need long-term anticoagulation but if the patient reverse back because significant left atrium is large, then patient needs long-term anticoagulation, explained in detail to the patient. We will also cut down the metoprolol to 25 p.o. b.i.d. to prevent the bradycardia because patient is 86-year-old, on Cardizem, amiodarone, and they will make him more bradycardic, so we will cut down to 25 p.o. b.i.d. Possible discharge home any if remain sinus. Patient is anxious to go home to continue with the prostate treatment for radiation. Patient left for radiation for prostate CA in addition to patient needs seeding of prostate in two weeks. We will keep n.p.o. at 3 o'clock after patient will start eating. We will also start low-dose of amiodarone from tomorrow, at 200 will give 400. Thank you, Dr. De Santiago for providing us the opportunity in taking care of the patient, Balbir Hyde. Lisa Benítez MD
[2017-06-02 20:54] VITALS: O2SAT 96
[2017-06-03 05:49] VITALS: RESP 18; TEMP 98.4
[2017-06-03] MEDS: Lubricant Eye Drops UD OU SCH (10:33)
[2017-06-03] MEDS: Hyoscyamine 0.125 mg SL Tab PO SCH (10:34)
[2017-06-03] MEDS: diltiaZEM 120 mg/24 Hours CD Cap PO SCH (10:34)
[2017-06-03 10:46] VITALS: BP 135/84; PULSE 90
--- NOTE | 2017-06-03 12:19 | PN ---
DATE: 06/03/2017 REASON FOR CONSULTATION: Followup new onset of atrial fibrillation, coronary artery disease status post SADE, cardioversion, in normal sinus. SUBJECTIVE: The patient denies any chest pain, shortness of breath, palpitation, anxious to go home. Keep on calling multiple times to go home. PHYSICAL EXAMINATION: GENERAL: Not in apparent distress, lying flat on the bed. VITAL SIGNS: Temperature afebrile, heart rate 81, blood pressure 101/61. HEENT: PERRLA. Extraocular muscles intact. NECK: Supple. No carotid bruits or thyromegaly. CHEST: Clear to auscultation. HEART: S1, S2 regular. ABDOMEN: Soft. EXTREMITIES: Clubbing and cyanosis negative. LABORATORY DATA: Blood workup as follows; WBC 3.5, hemoglobin 13.2, hematocrit 39.9, platelet count 137. Chemistry shows sodium 143, potassium 4.2, chloride 107, carbon dioxide 24, anion gap of 16, BUN 19, creatinine 1.1. The patient underwent yesterday SADE and cardioversion; SADE revealed 4-chamber dilatation, ejection fraction 20%-25%, trace AR, trace to mild PI, moderate mitral regurgitation, moderate tricuspid regurgitation, trace pericardial effusion, velocity in left atrial appendage is more than 0.4 m/sec squared, mild plaque in descending aorta and 200 joules synchronized cardioversion, the patient converted to normal sinus. IMPRESSION: New onset of atrial fibrillation, cardiomyopathy, history of coronary artery disease status post percutaneous transluminal coronary angioplasty of circumflex in 11/10/[address] Mami Corona. History of prostate cancer, had radiation, 2 remaining radiation sessions needs to be done and also plan for prostate seeding implantation. RECOMMENDATION: Okay to discharge from Cardiology point of view. The patient is anxious to go home. Continue amiodarone 200 mg daily, continue Eliquis 2.5 mg daily for 2 weeks, continue Cardizem CD 120 mg daily, change metoprolol 25 p.o. b.i.d. in addition to the baseline medication. Follow up with Dr. Mami Corona. We can explain the patient, the patient can come off the Eliquis after 2 weeks remain in normal sinus. We will follow Dr. Mami Corona. The patient can resume his radiation to the prostate 2 more sessions left and after 2 weeks of holding Eliquis, he will remain in sinus. The patient can go for prostate seeding in third week. I explained in detail to the patient. Prescription for amiodarone, Cardizem CD 120 mg daily, and Eliquis 2.5 p.o. b.i.d. as well as metoprolol tartrate 25 b.i.d. left in the prescription in the chart. Thank you Dr. De Santiago for providing the opportunity in taking care of the patient, Balbir Hyde. Lisa Benítez MD cc: Rocio De Santiago MD
--- NOTE | 2017-06-03 12:24 | CARD ---
APPROVED REPORT EKG Measurement Heart [id number] [id number] <Conclusion> Normal sinus rhythm Prolonged QT Abnormal ECG
== END 2017-06-03 14:50 | disposition home or self-care (01) | DRG 309 ==
LOC: ED 20:42 → ERH 23:57 → 3RSO 05-30 01:20
PROVIDERS: ADMIT Internal Medicine; ATTEND Internal Medicine
PROC: 5A2204Z Restoration of Cardiac Rhythm, Single (ICD-10-PCS; 2017-06-02)
PROC: B24BZZ4 Ultrasonography of Heart with Aorta, Transesophageal (ICD-10-PCS; principal; 2017-06-02 12:00)
DX: I48.91 Unspecified atrial fibrillation (principal); I48.92 Unspecified atrial flutter; I69.354 Hemiplegia and hemiparesis following cerebral infarction affecting left non-dominant side; C61 Malignant neoplasm of prostate; I42.9 Cardiomyopathy, unspecified; D70.9 Neutropenia, unspecified; D64.9 Anemia, unspecified; E78.00 Pure hypercholesterolemia, unspecified; I10 Essential (primary) hypertension; I25.10 Atherosclerotic heart disease of native coronary artery without angina pectoris; R73.9 Hyperglycemia, unspecified; Z79.82 Long term (current) use of aspirin; Z95.5 Presence of coronary angioplasty implant and graft; Z79.899 Other long term (current) drug therapy

== ENCOUNTER 2017-09-02 18:06 | Emergency (ER) | payer MEDICARE, BC, OTHER ==
[2017-09-02 18:07] VITALS: PULSE 84; BMI 20.7
--- NOTE | 2017-09-02 19:39 | ED PDOC ---
Arrival/HPI - General Historian: Patient - History of Present Illness Time/Duration: Prior to Arrival Symptom Onset: Sudden Symptom Course: Improving Quality: Aching Severity Level: 3 Activities at Onset: Light Context: Walking <Jason Stephenson - Last Filed: 09/03/17 00:23> <YanciGuilherme L - Last Filed: 09/05/17 18:41> - General Chief Complaint: Trauma Time Seen by Provider: 09/02/17 18:52 - History of Present Illness Narrative History of Present Illness (Text): 09/02/17 19:39 Patient is an 87 year old male with a past medical history significant for CVA 2008, Atrial fibrillation (rate controlled and anticoagulated), hypertension, and prostate cancer (radiation and seeding 06/2017) who presents to the emergency department s/p fall this evening. Patient states he was walking out of his room then lost his balance and tripped on his door which caused him to fall and hit his head on the edge of a table. Patient states he did not lose consciousness and did not experience dizziness during the episode. Patient states his instability has been present since his stroke in 2008 and with age has progressed. Patient was fully aware of what was happening during his fall. Patient currently has a laceration on forehead about 4cm. Denies dizziness, shortness of breath, chest pain, headache, urinary/bowel incontinence, nausea, vomiting, diarrhea, fevers, chills. PMD/[employer]: Dr. Corona in [place], [place] PMH: CVA 2009, Atrial fibrillation, Prostate cancer, hypertension Family history: Non-contributory (Jason Stephenson) Past Medical History - Provider Review Nursing Documentation Reviewed: Yes - Infectious Disease Hx of Infectious Diseases: None - Cardiac Hx Cardiac Disorders: Yes Hx Hypertension: Yes - Pulmonary Hx Respiratory Disorders: No - Neurological Hx Neurological Disorder: No - HEENT Hx HEENT Disorder: Yes (wears glasses) - Renal Hx Renal Disorder: No - Endocrine/Metabolic Hx Endocrine Disorders: No - Hematological/Oncological Hx Blood Disorders: Yes Hx Cancer: Yes (prostate) - Integumentary Hx Dermatological Disorder: No - Musculoskeletal/Rheumatological Hx Arthritis: Yes - Gastrointestinal Hx Gastrointestinal Disorders: No - Genitourinary/Gynecological Hx Genitourinary Disorders: Yes Hx Prostate Problems: Yes (HX of prostate CA) - Psychiatric Hx Psychophysiologic Disorder: No Hx Substance Use: No - Surgical History Other/Comment: prostate. green light surgery - Anesthesia Hx Anesthesia: Yes Hx Anesthesia Reactions: No Hx Malignant Hyperthermia: No <Jason Stephenson - Last Filed: 09/03/17 00:23> <Guilherme Pete - Last Filed: 09/05/17 18:41> - Patient History Narrative Patient History: cerebrovascular accident in 2009, Atrial fibrillation, hypertension, prostate cancer (Jason Stephenson) Family/Social History - Physician Review Nursing Documentation Reviewed: Yes Family/Social History: CVA/TIA (father), Neoplasm/Cancer (mother: gastric) Smoking Status: Unknown If Ever Smoked Hx Alcohol Use: No Hx Substance Use: No <Jason Stephenson - Last Filed: 09/03/17 00:23> Allergies/Home Meds <Jason Stephenson - Last Filed: 09/03/17 00:23> <Guilherme Pete - Last Filed: 09/05/17 18:41> Allergies/Adverse Reactions: Allergies No Known Allergies Allergy (Verified 09/02/17 18:29) Home Medications: Home Meds Medication Instructions Recorded Confirmed Aspirin [Adult Low Dose Aspirin EC] 81 mg PO DAILY 06/15/16 09/04/17 Rosuvastatin Calcium [Crestor] 20 mg PO DAILY 05/29/17 09/04/17 Valsartan/Hydrochlorothiazide 1 tab PO DAILY 05/30/17 09/04/17 [Valsartan-Hctz 160-25 mg Tab] Metoprolol Tartrate [Lopressor] 100 mg PO DAILY 09/02/17 09/04/17 Rivaroxaban [Xarelto] 20 mg PO DAILY 09/02/17 09/04/17 Review of Systems - Review of Systems Constitutional: Fatigue (since radiation therapy). absent: Fevers, Night Sweats Respiratory: absent: SOB, Cough Cardiovascular: absent: Chest Pain, Palpitations Gastrointestinal: Hematemesis. absent: Abdominal Pain, Diarrhea, Nausea, Vomiting Musculoskeletal: absent: Back Pain Skin: absent: Rash, Pruritis Neurological: absent: Headache, Dizziness Psychiatric: absent: Anxiety <Jason Stephenson - Last Filed: 09/03/17 00:23> Physical Exam Vital Signs Reviewed: Yes Temperature: Afebrile Blood Pressure: Normal Pulse: Irregular Respiratory Rate: Normal Appearance: Positive for: Well-Appearing, Non-Toxic, Comfortable Pain Distress: None Mental Status: Positive for: Alert and Oriented X 3 - Systems Exam Head: No: Atraumatic (laceration mid forehead) Pupils: Present: PERRL Extroacular Muscles: Present: EOMI Conjunctiva: Present: Normal Mouth: Present: Moist Mucous Membranes Respiratory/Chest: Present: Clear to Auscultation. No: Wheezes, Rhonchi Cardiovascular: Present: Normal S1, S2, Irregular Rhythm. No: Regular Rate and Rhythm Abdomen: Present: Normal Bowel Sounds. No: Tenderness, Distention Upper Extremity: Present: Normal Inspection. No: Cyanosis, Edema Lower Extremity: Present: Normal Inspection. No: Edema Neurological: Present: GCS=15, CN II-XII Intact, Speech Normal Skin: Present: Warm, Dry. No: Rashes Psychiatric: Present: Alert, Oriented x 3, Normal Insight, Normal Concentration <Jason Stephenson - Last Filed: 09/03/17 00:23> - Systems Exam Head: Present: Atraumatic, Normocephalic, Laceration Pupils: Present: PERRL Extroacular Muscles: Present: EOMI Conjunctiva: Present: Normal Ears: Present: NORMAL TM Mouth: Present: Moist Mucous Membranes Pharnyx: Present: Normal Nose (External): Present: Atraumatic Nose (Internal): Present: Normal Inspection, No Active Bleeding Neck: Present: Normal Range of Motion. No: MIDLINE TENDERNESS Respiratory/Chest: Present: Clear to Auscultation Cardiovascular: Present: Normal S1, S2, Irregular Rhythm. No: Regular Rate and Rhythm Abdomen: Present: Normal Bowel Sounds. No: Tenderness, Distention Back: Present: Normal Inspection. No: Midline Tenderness, Paraspinal Tenderness Upper Extremity: Present: Normal Inspection, Normal ROM, NORMAL PULSES, Neurovascularly Intact. No: Tenderness Lower Extremity: Present: Normal Inspection, NORMAL PULSES, Normal ROM, Neurovascularly Intact. No: Tenderness Neurological: Present: GCS=15, CN II-XII Intact, Speech Normal, Motor Func Grossly Intact, Normal Sensory Function, Normal Cerebellar Funct, Gait Normal, Memory Normal Skin: Present: Warm, Dry. No: Rashes Psychiatric: Present: Alert, Oriented x 3, Normal Insight, Normal Concentration , Normal Affect, Normal Mood <Guilherme Pete - Last Filed: 09/05/17 18:41> Vital Signs Temp Pulse Resp BP Pulse Ox 09/02/17 23:58 98.2 F 72 16 116/62 100 09/02/17 23:36 86 15 128/51 L 100 09/02/17 18:34 98.1 F 130 H 16 108/73 96 Medical Decision Making Re-evaluation Time: 23:00 - Lab Interpretations I have reviewed the lab results: Yes Interpretation: All labs normal <Jason Stephenson - Last Filed: 09/03/17 00:23> <KyleGuilherme bedoya Ximena - Last Filed: 09/05/17 18:41> ED Course and Treatment: 09/02/17 20:52 Patient seen at bedside states he feels fine just hungry at the moment. 09/02/17 23:35 Attempted dermabond on laceration however hemostasis was not achieved. Sutures were then placed, hemostasis achieved. Patient was able to successfully ambulate to the bathroom during ER visit. Patient insists on returning home to his and does not want to be hospitalized when given the option to stay overnight for further observation. (Jason Stephenson) 09/02/17 23:51 Impression: Pt seen and evaluated with medical office administrator. Aware and agree with HPI, clinical findings, plan, and management. Pt whose past medical history includes CVA, atrial fibrillation on anti-coagulation, hypertension, and prostate cancer, presented s/p fall this evening. Pt lost balance while walking, tripped on his door, and hit his head on a table. No LOC/headache/dizziness. Plan: -- CT Head w/o contrast -- EKG -- Labs -- Laceration repair -- Reassess and disposition Progress Notes: resident services manager attempted laceration repair initially with Dermabond, but due to continued bleeding, sutures were placed after dermabond dried PROCEDURE: LACERATION REPAIR Performed by the emergency provider Location: Mid forehead Length: 4 cm Description: clean wound edges,no foreign bodies Distal CMS: Normal. No deficits. Neurovascularly intact. Anesthesia: Lidocaine 1% Preparation: The wound was cleaned with NS and Bet[place]ne. The area was prepped and draped in the usual sterile fashion. Exploration: The wound was explored and no foreign bodies were found. Procedure: The wound was closed with 5 interuppted 6-0 nylon sutures. There was good approximation. Post-Procedure: Good closure and hemostasis. The patient tolerated the procedure well and there were no complications. CSM remains intact. Post procedure dressing applied. Bleeding controlled. Pt currently asymptomatic. Patient denies any dizziness/ light-headedness. Pt was offered hospital observation secondary to head injury on blood thinner, however pt prefers to follow up with his PMD. Pt has close follow up outpt. Pt stable for d/c. Pt advised to return to the ER in 1 week for suture removal, or if he develops any new/worsening symptoms. (Guilherme Pete) - Lab Interpretations Lab Results: 09/02/17 19:46 09/02/17 19:46 Lab Results 09/02/17 19:46: PT 27.2 H, INR 2.34 H, APTT 45.5 H 09/02/17 19:46: Sodium 143, Potassium 4.1, Chloride 106, Carbon Dioxide 29, Anion Gap 12, BUN 22 H, Creatinine 1.1, Est GFR ( Amer) > 60, Est GFR ( Non-Af Amer) > 60, Random Glucose 90, Calcium 9.1, Phosphorus 3.3, Magnesium 2.0 , Total Bilirubin 0.5, AST 50, ALT 47, Alkaline Phosphatase 83, Total Protein 6.7, Albumin 3.7, Globulin 3.1, Albumin/Globulin Ratio 1.2 09/02/17 19:46: WBC 4.1 L, RBC 4.20, Hgb 12.7 L, Hct 37.4 L, MCV 89.0 D, MCH 30.2, MCHC 34.0, RDW 15.6 H, Plt Count 122, MPV 11.0, Gran % 66.7, Lymph % (Auto ) 21.1 L, [place] % (Auto) 8.3 H, Eos % (Auto) 2.9, Baso % (Auto) 1.0, Gran # 2.72 , Lymph # (Auto) 0.9 L, [place] # (Auto) 0.3, Eos # (Auto) 0.1, Baso # (Auto) 0.04 - RAD Interpretation Radiology Orders: 09/02/17 19:39 HEAD W/O CONTRAST [CT] Stat - Medication Orders Current Medication Orders: Discontinued Medications Sodium Chloride (Sodium Chloride 0.9%) 500 mls @ 100 mls/hr IV .Q5H [facility] Last Admin: 09/02/17 20:21 Dose: 100 mls/hr eMAR Start Stop Document 09/02/17 20:21 CNR (Rec: 09/02/17 20:21 CNR [id number]) Intravenous Solution Start Date 09/02/17 Start Time 20:21 Disposition/Present on Arrival - Present on Arrival Any Indicators Present on Arrival: No History of DVT/PE: No History of Uncontrolled Diabetes: No Urinary Catheter: No History of Decub. Ulcer: No History Surgical Site Infection Following: None - Disposition Have Diagnosis and Disposition been Completed?: Yes Disposition Time: 23:35 Patient Plan: Discharge <Jason Stephenson - Last Filed: 09/03/17 00:23> <Guilherme Pete - Last Filed: 09/05/17 18:41> - Disposition Diagnosis: Fall, Head contusion, Laceration Disposition: HOME/ ROUTINE Condition: IMPROVED Discharge Instructions (ExitCare): Concussion in Adults, Laceration Repair, Preventing Falls Additional Instructions: Mr Dodde, thank you for letting us take care of you today. Your provider was Dr. Pete. You were treated for Mechanical Fall, Head Injury, Laceration. The emergency medical care you received today was directed at your acute symptoms. If you were prescribed any medication, please fill it and take as directed. It may take several days for your symptoms to resolve. Return to the Emergency Department if your symptoms worsen, do not improve, or if you have any other problems. Please contact your doctor or call one of the physicians/clinics you have been referred to that are listed on the Patient Visit Information form that is included in your discharge packet. Bring any paperwork you were given at discharge with you along with any medications you are taking to your follow up visit. Our treatment cannot replace ongoing medical care by a primary care provider (PCP) outside of the emergency department. Thank you for allowing the [facility] team to be part of your care today. If you had an X-Ray or CT scan: A Radiologist will review the ED reading if any change in treatment is needed we will contact you. If you had a blood, urine, or wound culture: It will take several days for the results, if any change in treatment is needed we will contact you. If you had an STI test: It will take 48 hours for the results. Please call after 1 week if you have not heard back. Referrals: Mami Corona MD [Primary Care Provider] - Follow up with primary Forms: [employer] (Dominican)
[2017-09-02 19:52] LABS: BASO # 0.04 K/mm3 (0.0-2.0); EOS # 0.1 (0.0-0.7); EOS % 2.9 % (1.5-5.0); GRAN # 2.72 (1.4-6.5); GRAN % 66.7 % (50.0-68.0); HEMOGLOBIN 12.7 g/dL (14.0-18.0); LYMPH # 0.9 (1.2-3.4); LYMPH % 21.1 % (22.0-35.0); MEAN CORPUSCULAR HEMOGLOBIN 30.2 pg (25.0-35.0); MONO # 0.3 (0.1-0.6); MONO % 8.3 % (1.0-6.0); RBC 4.2 10^6/uL (3.5-6.1); RED CELL DISTRIBUTION WIDTH 15.6 % (11.5-14.5); WHITE BLOOD COUNT 4.1 10^3/ul (4.5-11.0)
[2017-09-02 20:04] LABS: ALB/GLOB RATIO 1.2 (1.1-1.8); ALBUMIN 3.7 g/dL (3.0-4.8); ALT/SGPT 47 U/L (7-56); AST/SGOT 50 U/L (17-59); BLOOD UREA NITROGEN 22 mg/dL (7-21); CALCIUM 9.1 mg/dL (8.4-10.5); GFR AFRICAN-AMERICAN > 60; GFR NON-AFRICAN AMERICAN > 60
[2017-09-02 20:10] LABS: INR 2.34 (0.93-1.08); PARTIAL THROMBOPLASTIN TIME 45.5 Seconds (25.1-36.5); PROTHROMBIN TIME 27.2 SECONDS (9.4-12.5)
[2017-09-02] MEDS ORDERED: Sodium Chloride 0.9% 500 ML IV SCH (20:15)
[2017-09-02 23:37] VITALS: O2SAT 100
[2017-09-03 03:22] VITALS: BP 116/62; PULSE 72; RESP 16; TEMP 98.2
--- NOTE | 2017-09-03 10:02 | CT ---
PROCEDURE: CT HEAD WITHOUT CONTRAST. HISTORY: fall, head injury COMPARISON: None available. TECHNIQUE: Axial computed tomography images were obtained through the head/brain without intravenous contrast. Radiation dose: Total exam DLP = 986 mGy-cm. This CT exam was performed using one or more of the following dose reduction techniques: Automated exposure control, adjustment of the mA and/or kV according to patient size, and/or use of iterative reconstruction technique. FINDINGS: HEMORRHAGE: No intracranial hemorrhage. BRAIN: No mass effect or edema. Severe chronic microvascular changes are seen in the periventricular white matter. VENTRICLES: Unremarkable. No hydrocephalus. CALVARIUM: Unremarkable. PARANASAL SINUSES: Unremarkable as visualized. No significant inflammatory changes. MASTOID AIR CELLS: Unremarkable as visualized. No inflammatory changes. OTHER FINDINGS: None. IMPRESSION: No acute findings
--- NOTE | 2017-09-03 13:11 | CARD ---
APPROVED REPORT EKG Measurement Heart [id number] <Conclusion> Atrial flutter with variable AV block NSSSTW changes Prolonged QTc
== END 2017-09-02 23:58 | disposition home or self-care (01) ==
LOC: ED 18:06
DX: S01.81XA Laceration without foreign body of other part of head, initial encounter (principal); W01.198A Fall on same level from slipping, tripping and stumbling with subsequent striking against other object, initial encounter; Y92.009 Unspecified place in unspecified non-institutional (private) residence as the place of occurrence of the external cause
CPT/HCPCS: 12013; 70450; 80053; 83735; 84100; 85025; 85610; 85730; 93005; 99285; J7040

== ENCOUNTER 2017-09-04 18:50 | Emergency (ER) | payer MEDICARE, OTHER ==
[2017-09-04 18:51] VITALS: PULSE 84; BMI 20.7
[2017-09-04 19:22] VITALS: RESP 18
--- NOTE | 2017-09-04 19:30 | ED PDOC ---
Arrival/HPI <Dann Akers - Last Filed: 09/04/17 21:11> - General Historian: Patient - History of Present Illness Time/Duration: Prior to Arrival Symptom Onset: Sudden Symptom Course: [place] Quality: Aching Severity Level: 5 Activities at Onset: Rest Context: Home <Jason Stephenson - Last Filed: 09/05/17 01:06> - General Chief Complaint: Back Pain Time Seen by Provider: 09/04/17 19:23 - History of Present Illness Narrative History of Present Illness (Text): 09/04/17 19:26 Patient is a 87 M presenting 2 days s/p fall. Patient was evaluated in Emergency department 09/02/2017 for same fall complaining of laceration to forehead. At time patient states he fell forward and only injured his head for which CT head was performed and revealed no signs of ICH. Patient returns today with complains of back pain which started as per patient the night he was discharged from the Emergency department. He states he now remembers hitting his back as well as his head during the fall. Patient has no complaints of dizziness, headache, loss of consciousness. (Jason Stephenson) Past Medical History - Provider Review Nursing Documentation Reviewed: Yes - Infectious Disease Hx of Infectious Diseases: None - Cardiac Hx Cardiac Disorders: Yes Hx Hypertension: Yes - Pulmonary Hx Respiratory Disorders: No - Neurological Hx Neurological Disorder: No - HEENT Hx HEENT Disorder: Yes (wears glasses) - Renal Hx Renal Disorder: No - Endocrine/Metabolic Hx Endocrine Disorders: No - Hematological/Oncological Hx Blood Disorders: Yes Hx Cancer: Yes (prostate) - Integumentary Hx Dermatological Disorder: No - Musculoskeletal/Rheumatological Hx Arthritis: Yes - Gastrointestinal Hx Gastrointestinal Disorders: No - Genitourinary/Gynecological Hx Genitourinary Disorders: Yes Hx Prostate Problems: Yes (HX of prostate CA) - Psychiatric Hx Psychophysiologic Disorder: No Hx Substance Use: No - Surgical History Other/Comment: prostate. green light surgery - Anesthesia Hx Anesthesia: Yes Hx Anesthesia Reactions: No Hx Malignant Hyperthermia: No <Jason Stephenson - Last Filed: 09/05/17 01:06> Family/Social History - Physician Review Nursing Documentation Reviewed: Yes Family/Social History: Other (non-contributory) Smoking Status: Unknown If Ever Smoked Hx Alcohol Use: No Hx Substance Use: No <Jason Stephenson - Last Filed: 09/05/17 01:06> Allergies/Home Meds <Dann Akers - Last Filed: 09/04/17 21:11> <Jason Stephenson - Last Filed: 09/05/17 01:06> Allergies/Adverse Reactions: Allergies No Known Allergies Allergy (Verified 09/02/17 18:29) Home Medications: Home Meds Medication Instructions Recorded Confirmed Aspirin [Adult Low Dose Aspirin EC] 81 mg PO DAILY 06/15/16 09/04/17 Rosuvastatin Calcium [Crestor] 20 mg PO DAILY 05/29/17 09/04/17 Valsartan/Hydrochlorothiazide 1 tab PO DAILY 05/30/17 09/04/17 [Valsartan-Hctz 160-25 mg Tab] Metoprolol Tartrate [Lopressor] 100 mg PO DAILY 09/02/17 09/04/17 Rivaroxaban [Xarelto] 20 mg PO DAILY 09/02/17 09/04/17 Review of Systems - Review of Systems Constitutional: Normal. absent: Fatigue, Fevers Eyes: Normal ENT: Normal Respiratory: Normal. absent: SOB Cardiovascular: absent: Chest Pain, Palpitations Gastrointestinal: absent: Abdominal Pain, Diarrhea, Nausea Genitourinary Male: absent: Dysuria Musculoskeletal: Back Pain Skin: absent: Rash Neurological: absent: Headache, Dizziness Psychiatric: absent: Anxiety <Jason Stephenson - Last Filed: 09/05/17 01:06> Physical Exam Vital Signs Reviewed: Yes Temperature: Afebrile Blood Pressure: Normal Pulse: Regular Respiratory Rate: Normal Appearance: Positive for: Well-Appearing, Non-Toxic, Comfortable Pain Distress: None Mental Status: Positive for: Alert and Oriented X 3 - Systems Exam Head: Present: Atraumatic, Normocephalic Pupils: Present: PERRL Extroacular Muscles: Present: EOMI Conjunctiva: Present: Normal Mouth: Present: Moist Mucous Membranes Neck: Present: Normal Range of Motion Respiratory/Chest: Present: Clear to Auscultation Cardiovascular: Present: Regular Rate and Rhythm, Normal S1, S2 Abdomen: No: Tenderness, Distention Upper Extremity: Present: Normal Inspection Lower Extremity: Present: Normal Inspection Neurological: Present: GCS=15, CN II-XII Intact, Speech Normal Skin: Present: Warm, Normal Color Psychiatric: Present: Alert, Oriented x 3, Normal Insight, Normal Concentration <Jason Stephenson - Last Filed: 09/05/17 01:06> Vital Signs Temp Pulse Resp BP Pulse Ox 09/04/17 19:14 97.3 F L 128 H 18 105/79 99 Medical Decision Making <Dann Akers - Last Filed: 09/04/17 21:11> Re-evaluation Time: 22:20 <Jason Stephenson - Last Filed: 09/05/17 01:06> ED Course and Treatment: A 87 year old male presents for wound check. Patient reports wound to forehead and back pain from fall on 09/02/17. In agreement with resident note, which includes further HPI details. Patient was seen and evaluated with resident, came up with plan and treatment together. (Dann Akers) 09/04/17 19:38 Radioimaging of thoracolumbar spine and hip b/l view ordered. 09/04/17 22:20 Radioimaging reveals no evidence of fractures. Bandage was given to patient to place over sutures. Will give patient flexeril to relieve muscle pain. NSAID not given due to patient being on xarelto and aspirin. (Jason Stephenson) - RAD Interpretation Radiology Orders: 09/04/17 19:31 DORSAL (THORACIC) SPINE [RAD] Stat HIP MIN 3V W/ PELVIS JESSICA [RAD] Stat LS SPINE AP/LAT [RAD] Stat - PA / ASSISTANT PROFESSOR OF DRAMA / Resident Statement / has reviewed & agrees with the documentation as recorded. TYLER has examined the patient and agrees with the treatment plan. <Dann Akers - Last Filed: 09/04/17 21:11> Disposition/Present on Arrival <Dann Akers - Last Filed: 09/04/17 21:11> - Present on Arrival Any Indicators Present on Arrival: No History of DVT/PE: No History of Uncontrolled Diabetes: No Urinary Catheter: No History of Decub. Ulcer: No History Surgical Site Infection Following: None - Disposition Have Diagnosis and Disposition been Completed?: Yes Disposition Time: 22:27 Patient Plan: Discharge <Jason Stephenson - Last Filed: 09/05/17 01:06> - Disposition Diagnosis: Back pain Disposition: HOME/ ROUTINE Condition: GOOD Discharge Instructions (ExitCare): Upper Back Pain (DC) Additional Instructions: Mr. Hyde, thank you for letting us take care of you today. You were treated for back pain. The emergency medical care you received today was directed at your acute symptoms. If you were prescribed any medication, please fill it and take as directed. It may take several days for your symptoms to resolve. Return to the Emergency Department if your symptoms worsen, do not improve, or if you have any other problems. Please contact your doctor or call one of the physicians/clinics you have been referred to that are listed on the Patient Visit Information form that is included in your discharge packet. Bring any paperwork you were given at discharge with you along with any medications you are taking to your follow up visit. Our treatment cannot replace ongoing medical care by a primary care provider (PCP) outside of the emergency department. Thank you for allowing the [facility] team to be part of your care today. If you had an X-Ray or CT scan: A Radiologist will review the ED reading if any change in treatment is needed we will contact you. If you had a blood, urine, or wound culture: It will take several days for the results, if any change in treatment is needed we will contact you. If you had an STI test: It will take 48 hours for the results. Please call after 1 week if you have not heard back. Prescriptions: Cyclobenzaprine [Flexeril] 5 mg PO TID #15 tab Referrals: Mami Corona MD [Primary Care Provider] - Follow up with primary Forms: [employer] (Romanian)
--- NOTE | 2017-09-04 21:51 | RAD ---
EXAM: XR Thoracic Spine, 2 Views CLINICAL HISTORY: 87 years old, male; Injury or trauma; Fall; Late effect from previous injury; Blunt trauma (contusions or hematomas) TECHNIQUE: Frontal and lateral views of the thoracic spine. COMPARISON: No relevant prior studies available. FINDINGS: Vertebrae: No acute fracture. Mild curvature of spine. Disc spaces: Mild degenerative changes of spine. Lungs: Linear atelectasis/scarring LEFT lower lobe. Soft tissues: Unremarkable. Other findings: Elevated RIGHT hemidiaphragm. IMPRESSION: 1. No fracture. 2. If back pain persists, consider MRI for further evaluation. 3. Incidental/non-acute findings are described above.
--- NOTE | 2017-09-04 21:53 | RAD ---
EXAM: XR Lumbar Spine, 2 or 3 Views CLINICAL HISTORY: 87 years old, male; Injury or trauma; Fall; Late effect from previous injury; Blunt trauma (contusions or hematomas) TECHNIQUE: Frontal and lateral views of the lumbar spine. COMPARISON: No relevant prior studies available. FINDINGS: Vertebrae: No acute fracture. Degenerative anterolisthesis of mid lumbar spine. Mild curvature of spine. 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 Disc spaces: Moderate to severe degenerative changes of spine. Soft tissues: Unremarkable. IMPRESSION: 1. No fracture. 2. If back pain persists, consider MRI for further evaluation. 3. Incidental/non-acute findings are described above.
[2017-09-04 23:06] VITALS: BP 142/80; PULSE 80; TEMP 98.2; O2SAT 100
--- NOTE | 2017-09-05 10:03 | RAD ---
PROCEDURE: Radiographs of the pelvis and bilateral hips HISTORY: fall COMPARISON: None. FINDINGS: BONES: Pelvis: Unremarkable. Right hip:Unremarkable. Left hip:Unremarkable. JOINTS: Right hip: Mild joint space narrowing Left hip: Mild joint space narrow Sacroiliac Joints: Unremarkable. Pubic symphysis: Unremarkable. SOFT TISSUES: Normal. OTHER FINDINGS: None. IMPRESSION: Unremarkable radiographs of the hips and pelvis.
== END 2017-09-04 23:00 | disposition home or self-care (01) ==
LOC: ED 18:50
DX: M54.9 Dorsalgia, unspecified (principal); I10 Essential (primary) hypertension

== ENCOUNTER 2017-09-13 00:07 | Emergency (ER) | payer MEDICARE, OTHER ==
[2017-09-13 00:07] VITALS: PULSE 84; BMI 20.7
--- NOTE | 2017-09-13 00:29 | ED PDOC ---
Arrival/HPI - General Time Seen by Provider: 09/13/17 00:29 Historian: Patient, Spouse - History of Present Illness Narrative History of Present Illness (Text): 09/13/17 00:29 This 87 yo male presents to this ED for sutures removal from left forehead. Patient denies new complains. Time/Duration: 1 week Past Medical History - Provider Review Nursing Documentation Reviewed: Yes - Infectious Disease Hx of Infectious Diseases: None - Cardiac Hx Cardiac Disorders: Yes Hx Hypertension: Yes - Pulmonary Hx Respiratory Disorders: No - Neurological Hx Neurological Disorder: No - HEENT Hx HEENT Disorder: Yes (wears glasses) - Renal Hx Renal Disorder: No - Endocrine/Metabolic Hx Endocrine Disorders: No - Hematological/Oncological Hx Blood Disorders: Yes Hx Cancer: Yes (prostate) - Integumentary Hx Dermatological Disorder: No - Musculoskeletal/Rheumatological Hx Arthritis: Yes - Gastrointestinal Hx Gastrointestinal Disorders: No - Genitourinary/Gynecological Hx Genitourinary Disorders: Yes Hx Prostate Problems: Yes (HX of prostate CA) - Psychiatric Hx Psychophysiologic Disorder: No Hx Substance Use: No - Surgical History Other/Comment: prostate. green light surgery - Anesthesia Hx Anesthesia: Yes Hx Anesthesia Reactions: No Hx Malignant Hyperthermia: No Family/Social History - Physician Review Nursing Documentation Reviewed: Yes Family/Social History: Other (noncontributory) Smoking Status: Unknown If Ever Smoked Hx Alcohol Use: No Hx Substance Use: No Allergies/Home Meds Allergies/Adverse Reactions: Allergies No Known Allergies Allergy (Verified 09/13/17 00:30) Home Medications: Home Meds Medication Instructions Recorded Confirmed Aspirin [Adult Low Dose Aspirin EC] 81 mg PO DAILY 06/15/16 09/13/17 Rosuvastatin Calcium [Crestor] 20 mg PO DAILY 05/29/17 09/13/17 Valsartan/Hydrochlorothiazide 1 tab PO DAILY 05/30/17 09/13/17 [Valsartan-Hctz 160-25 mg Tab] Metoprolol Tartrate [Lopressor] 100 mg PO DAILY 09/02/17 09/13/17 Rivaroxaban [Xarelto] 20 mg PO DAILY 09/02/17 09/13/17 Review of Systems - Review of Systems Constitutional: Normal. absent: Fatigue, Weight Change, Fevers Eyes: Normal ENT: Normal Respiratory: Normal Cardiovascular: Normal Gastrointestinal: Normal Genitourinary Male: Normal Musculoskeletal: Normal Skin: Other (left forehead sutures removal) Neurological: Normal Endocrine: Normal Hemo/Lymphatic: Normal Psychiatric: Normal Physical Exam Temperature: Afebrile Blood Pressure: Normal Pulse: Regular Respiratory Rate: Normal Appearance: Positive for: Well-Appearing, Non-Toxic, Comfortable Pain Distress: None Mental Status: Positive for: Alert and Oriented X 3 - Systems Exam Head: Present: Normocephalic, Other (no raccoon sign. no kingsley sign) Pupils: Present: PERRL Extroacular Muscles: Present: EOMI. No: Entrapment Conjunctiva: Present: Normal Mouth: Present: Moist Mucous Membranes Upper Extremity: Present: Normal Inspection, Normal ROM Lower Extremity: Present: Normal Inspection, Normal ROM Neurological: Present: GCS=15, CN II-XII Intact, Speech Normal, Motor Func Grossly Intact, Normal Sensory Function, Normal Cerebellar Funct, Gait Normal, Memory Normal Skin: Present: Warm, Dry, Normal Color, Other ((+) left forehead wound has 5 sutures, 6-0, nylon, interrupted, healed well. No cellulitis, drainage or dehiscense). No: Rashes Psychiatric: Present: Alert, Oriented x 3, Normal Insight, Normal Concentration Medical Decision Making ED Course and Treatment: 09/13/17 01:01 Re-evaluation. Patient feels better. Discussed results and plan with patient who expresses understanding. All questions answered and there is agreement with the plan to discharge home with instructions. Patient stable for discharge. Return if symptoms persist or worsen. PROCEDURE: SUTURE REMOVAL Performed by the emergency provider Location: left forehead Length: 2.7 cm Distal CMS: Normal. No deficits. Neurovascularly intact. Preparation: The wound was cleaned with NS and [place]. The area was prepped and draped in the usual sterile fashion. Procedure: In total, 5 sutures were removed. Post-Procedure: Good closure and hemostasis. The patient tolerated the procedure well and there were no complications. CSM remains intact. Re-evaluation Time: 01:00 Reassessment Condition: Re-examined, Improved Disposition/Present on Arrival - Present on Arrival Any Indicators Present on Arrival: No History of DVT/PE: No History of Uncontrolled Diabetes: No Urinary Catheter: No History Surgical Site Infection Following: None - Disposition Have Diagnosis and Disposition been Completed?: Yes Diagnosis: Encounter for wound re-check, Encounter for removal of sutures Disposition: HOME/ ROUTINE Disposition Time: 01:03 Patient Plan: Discharge Condition: GOOD Discharge Instructions (ExitCare): Stitches Removal Additional Instructions: Call private doctor for follow up visit in 1-2 days. Return to emergency if healed wound becomes infected. Referrals: Gabrielle Goodson MD [Medical Doctor] - Follow up with primary
[2017-09-13 01:08] VITALS: TEMP 98.5; O2SAT 100
[2017-09-13 02:02] VITALS: BP 118/72; PULSE 83; RESP 18
== END 2017-09-13 01:28 | disposition home or self-care (01) ==
LOC: ED 00:07
DX: Z48.02 Encounter for removal of sutures (principal)